=== PATIENT | male | born 1985 | race Caucasian/White ===

== ENCOUNTER 2018-09-14 14:28 | Emergency (ER) | payer OTHER ==
--- NOTE | 2018-09-14 14:43 | ED Physician Documentation ---
Multiple Trauma - HISTORIAN Historian: patient - HPI Stated Complaint: head/neck pain Chief Complaint: Multiple Trauma Additional Information: Patient presents to ED with complaints of head and neck pain after colliding with another person while running/playing baseball today. Patient was unconscious for approximately 1 minute. He sustained a 6 cm laceration to left forehead. He is not up to date on tetanus. Onset: just prior to arrival Where: other (usp yard) Location of Pain/Injury: head, neck, lower extremity (right leg), hip (right ) Injury to Right Extremity: none Injury to Left Extremity: none Severity: moderate Restraints: none - ROS CONST: no problems NEURO: dizziness EYES/ENT: problems with vision (seeing stars) MS/SKIN/LYMPH: neck pain. denies: weakness, numbness CVS/RESP: denies: chest pain, shortness of breath GI/: denies: nausea - PAST HX Past History: asthma, other (Hep C) Allergies/Adverse Reactions: Allergies Allergy/AdvReac Type Severity Reaction Status Date / Time No Known Allergies Allergy Verified 09/14/18 14:50 Home Medications: Ambulatory Orders Medication Instructions Recorded NK 09/14/18 - SOCIAL HX Smoking History: non-smoker Alcohol Use: none Drug Use: none - FAMILY HX Family History: none - VITAL SIGNS Vital Signs: Vital Signs Temp Pulse Resp BP Pulse Ox 98.6 F 58 L 19 139/91 99 09/14/18 14:36 09/14/18 14:36 09/14/18 14:36 09/14/18 14:36 09/14/18 14:36 - REVIEWED ASSESSMENTS Nursing Assessment Reviewed: Yes Vitals Reviewed: Yes Procedures Wound Location: head (left forehead) Wound Length: 6 cm Wound's Depth, Shape: linear, contused tissue Wound Explored: clean Irrigated w/ Saline (ccs): 1,000 Anesthesia: 1% Lidocaine Volume of Anesthetic: 15 Wound Debrided: moderate Wound Repaired With: sutures Suture Size/Type: 5:0 Number of Sutures: 18 Sterile Dressing Applied?: Yes Splint Applied?: No Sling Applied?: No ED Results Lab/Radiology - Orders Orders: ED Orders Category Date Time Status CHEST 1VIEW [RAD] Stat Exams 09/14/[address] BRAIN W/O CONTRAST Stat Exams 09/14/[address] C-SPINE W/O CONTRAST Stat Exams 09/14/18 Completed PELVIS AP 1 OR 2 VIEWS [RAD] Stat Exams 09/14/18 Completed RT HIP 2VIEW COMPLETE [RAD] Stat Exams 09/14/18 Completed TIBIA & FIBULA 2 VIEW [RAD] Stat Exams 09/14/18 Completed Diph,Pertuss(Acell),Tet Vac/Pf [Adacel] Med 09/14/18 16:46 Discontinued 0.5 ml IM .ONCE ONE Lidocaine 1% PF 30ml [Xylocaine 1% 30Ml Vial] Med 09/14/18 15:58 Discontinued 10 mg IJ NOW ONE Morphine Sulfate Med 09/14/18 15:04 Discontinued 5 mg IV NOW ONE Multiple Trauma Physical Exam - Physical Exam General Appearance: no acute distress, alert, 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[employer], 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 Head: trauma (6 cm laceration to left forehead) Neck: pain with neck movement Eyes: JILLIAN, EOMI ENT: no dental injury, no oral injury, airway nml Resp/CVS: chest non-tender, breath sounds nml Abdomen: soft, normal bowel sounds, non-tender Neuro/Psych: oriented x3, sensation nml, motor nml, mood/affect nml Skin: color nml, no rash Back: normal inspection Extremities: atraumatic, pelvis stable, no pedal edema, bony point-tenderness (right hip) Joint: nml ROM Discharge Clincal Impression: Laceration of forehead Qualifiers: Encounter type: initial encounter Qualified Code(s): S01.81XA - Laceration without foreign body of other part of head, initial encounter Head injury due to trauma Qualifiers: Encounter type: initial encounter Qualified Code(s): S09.90XA - Unspecified injury of head, initial encounter Referrals: Sushant Lam III, MD [Primary Care Provider] - 2 Days Additional Instructions: 1. Keep sutures dry. No swimming, hot tubs or baths. Showers ok 2. Wash sutures twice daily with warm soapy water, pat dry. 3. Ibuprofen 600mg every 6 hours as needed for pain 4. Remove sutures in 7-10 days. 5. Follow up with PCP within 7-10 days 6. Return to ER for new or worsening symptoms Condition: Stable Disposition: 01 HOME, SELF-CARE Decision to Admit: NO Date of Decison to Admit: 09/14/18 Decision Time: 17:12
[2018-09-14] MEDS ORDERED: MORPHINE SULFATE 5 MG/ML ML IV ONE (15:04)
--- NOTE | 2018-09-14 15:08 | Diagnostic Imaging Report ---
HUGO IZQUIERDO [facility] [address] [facility] [address] [address] Report Submission Date: Sep 14, 2018 3:04:28 PM CDT Patient Study Name: MELISSA THOMPSON Date: Sep 14, 2018 2:50:51 PM CDT Modality Type: CT\SR Gender: U Description: C-SPINE : 89 Institution: [facility] Physician: HUGO IZQUIERDO CT cervical spine without contrast. History: Neck pain. Technique: Transaxial computed tomographic images of the cervical spine were obtained without contrast according to standard protocol. Findings: Cervical spine straightening is present. There is no evidence of acute fracture. The odontoid process is intact. No significant degenerative change. No central canal or neural foraminal stenosis. No paravertebral soft tissue swelling. The lung apices are clear. Impression: 1. No acute osseous injury. 2. Cervical spine straightening. Electronically signed on Sep 14, 2018 3:04:28 PM CDT by: Terrenec Mitchell [facility] CAMPUSGiovana
--- NOTE | 2018-09-14 15:08 | Diagnostic Imaging Report ---
HUGO IZQUIERDO [facility] [address] [facility] [address] [place], [place]. [address] Report Submission Date: Sep 14, 2018 3:07:08 PM CDT Patient Study Name: MELISSA THOMPSON Date: Sep 14, 2018 2:48:32 PM CDT Modality Type: CT\SR Gender: U Description: HEAD W/O : 89 Institution: [facility] Physician: HUGO IZQUIERDO CT HEAD WO CONTRAST History: 33/M SOFTBALL INJURY, PT STATES PAIN IN HEAD AND NECK Technique: Standard noncontrast CT was performed with contiguous axial images acquired from skull base to vertex. Findings: There is no acute extra-axial fluid collection. Ventricles are of normal size, shape, and morphology. No mass effect or midline shift is present. No evidence of acute hemorrhage. The woodall-white matter differentiation is normal. Left frontal forehead hematoma present. The visualized portions of the orbits, and paranasal sinuses, and mastoids are normal. No fractures are identified. Impression: 1. No acute intracranial injury. 2. Left frontal forehead soft tissue swelling. Electronically signed on Sep 14, 2018 3:07:08 PM CDT by: Terrence OLIVAS
--- NOTE | 2018-09-14 15:47 | Diagnostic Imaging Report ---
HUGO IZQUIERDO [facility] [address] [facility] [address] [address] Report Submission Date: Sep 14, 2018 3:43:06 PM CDT Patient Study Name: MELISSA THOMPSON Date: Sep 14, 2018 2:40:04 PM CDT Modality Type: DX Gender: U Description: CHEST 1VIEW : 89 Institution: [facility] Physician: HUGO IZQUIERDO Chest, 1 view History: SOFTBALL INJURY - PAIN PT WAS SHIELDED Findings: The heart size is normal. The lungs are clear. There is no pleural effusion or pneumothorax identified. The osseous structures are normal. Impression: 1. No acute pulmonary disease. Electronically signed on Sep 14, 2018 3:43:06 PM CDT by: Terrence OLIVAS
--- NOTE | 2018-09-14 15:47 | Diagnostic Imaging Report ---
HUGO IZQUIERDO [facility] [address] [facility] [address] [address] Report Submission Date: Sep 14, 2018 3:42:32 PM CDT Patient Study Name: MELISSA THOMPSON Date: Sep 14, 2018 2:39:54 PM CDT Modality Type: DX Gender: U Description: PELVIS AP 1 OR 2 VIEWS : 89 Institution: [facility] Physician: UHGO IZQUIERDO Pelvis AP view. History: Pain. Findings: The osseous structures of the pelvis are intact. The proximal femur is intact. The sacroiliac joints are normal. Impression: 1. No acute osseous injury. Electronically signed on Sep 14, 2018 3:42:32 PM CDT by: Terrence OLIVAS
--- NOTE | 2018-09-14 15:48 | Diagnostic Imaging Report ---
HUGO IZQUIERDO [facility] [address] [facility] [address] [address] Report Submission Date: Sep 14, 2018 3:44:47 PM CDT Patient Study Name: MELISSA THOMPSON Date: Sep 14, 2018 2:40:18 PM CDT Modality Type: DX Gender: U Description: TIBIA FIBULA 2 VIEW : 89 Institution: [facility] Physician: HUGO IZQUIERDO Right tib-fib, two views History: Pain after softball injury. Findings: There is no evidence of acute fracture. The knee and ankle joints are normal. No soft tissue swelling. Impression: 1. No acute osseous injury. Electronically signed on Sep 14, 2018 3:44:47 PM CDT by: Terrence OLIVAS
--- NOTE | 2018-09-14 15:49 | Diagnostic Imaging Report ---
HUGO IZQUIERDO [facility] [address] [facility] [address] [address] Report Submission Date: Sep 14, 2018 3:43:54 PM CDT Patient Study Name: MELISSA THOMPSON Date: Sep 14, 2018 2:40:13 PM CDT Modality Type: DX Gender: U Description: RT HIP 2VIEW COMPLETE : 89 Institution: [facility] Physician: HUGO IZQUIERDO Right hip, two views History: Softball injury with pain. Findings: The osseous structures are intact without a fracture. The femoral head is well seated in the acetabulum. No soft tissue abnormality. Impression: 1. No acute osseous injury. Electronically signed on Sep 14, 2018 3:43:54 PM CDT by: Terrence OLIVAS
[2018-09-14] MEDS ORDERED: LIDOCAINE HCL 1% PF 300MG/30ML VIAL IJ ONE (15:58)
[2018-09-14] MEDS ORDERED: DIPH,PERTUSS(ACELL),TET VAC/PF 0.5 ML DISP.SYRIN IM ONE (16:46)
[2018-09-14 17:27] VITALS: BP 138/68
== END 2018-09-14 17:26 | disposition home or self-care (01) ==
LOC: ED 14:28
DX: S01.81XA Laceration without foreign body of other part of head, initial encounter (principal); S09.90XA Unspecified injury of head, initial encounter; W03.XXXA Other fall on same level due to collision with another person, initial encounter; Y93.64 Activity, baseball
CPT/HCPCS: 70450; 71045; 72125; 72170; 73502; 73590; 96372; 99284; J2001; S1016

== ENCOUNTER 2018-09-18 23:40 | Emergency (ER) | payer OTHER ==
[2018-09-18] MEDS ORDERED: 0.9 % SODIUM CHLORIDE 1,000 ML IV ONE (23:47)
--- NOTE | 2018-09-19 00:04 | ED Physician Documentation ---
General Adult - HISTORIAN Historian: patient, paramedics, other ([facility] [place]) - HPI Chief Complaint: Overdose Additional Information: Patient is a 33-year-old male who presents to the ER s/p "drug overdose" from the [facility] [place]. According to staff- patient was found unresponsive at 22:56; CPR was started at 22:58; 23:06 patient was given Narcan and he immediately responded. Upon EMS arrival to [facility] patient was alert and oriented x 3, he ambulated to the EMS cot. Patient brought to ER by [facility] for evaluation. Upon arrival patient is alert and oriented x 4- He c/o chest wall pain (from CPR)- when asked if patient took anything- he states NO- however, he responded with Narcan. He does not appear to be truthful with his answers. However, he is in no distress. Onset: hours (22:56) Timing: better Severity: mild Modifying Factors: "Drug Overdose" [facility] - ROS CONST: no problems EYES/ENT: none CVS/RESP: chest pain ("chest wall pain") GI/: none MS/SKIN/LYMPH: none - PAST HX Past History: asthma, other (hepatitis) Other History: none Immunizations: UTD Allergies/Adverse Reactions: Allergies Allergy/AdvReac Type Severity Reaction Status Date / Time No Known Allergies Allergy Verified 09/19/18 00:19 Home Medications: Ambulatory Orders Medication Instructions Recorded NK 09/14/18 - SOCIAL HX Smoking History: less than 1 pack/day Alcohol Use: none Drug Use: none - FAMILY HX Family History: No - VITAL SIGNS Vital Signs: Vital Signs Temp Pulse Resp BP Pulse Ox 138/68 09/14/18 17:25 - REVIEWED ASSESSMENTS Nursing Assessment Reviewed: Yes Vitals Reviewed: Yes Progress - Progress Progress: 01:00 Discussed results with officers- patient will be monitored on discharge. Patient is sleeping/appears to be resting comfortably- no acute distress. - EKG/XRAY/CT EKG: NSR (Rate of 82) ED Results Lab/Radiology - Lab Results Lab Results: WBC 8.2, Hgb 14.5, Hct 43.2, Platelets 228 Na 138, K+ 4.2, Cl 101, CO2 29, Glucose 128, Bun/Cr 19 & 0.7 Troponin 0.149 s/p chest compressions- EKG negative - patient not having any cardiac symptoms- will be monitored - Radiology Radiology Impressions: AP chest Clinical history: Cardia respiratory arrest. Examination of chest and single AP view with comparison to examination of 09/14/2018 demonstrates the lungs to be clear. Cardiovascular and mediastinal silhouettes are stable. Monitor leads superimpose the chest. Impression: 1. No significant change. 2. No active disease. - Orders Orders: ED Orders Category Date Time Status Continuous EKG monitoring Q30M Care 09/18/18 23:47 Active Continuous Pulse Oximetry Q30M Care 09/18/18 23:[address] IV Lock 1T Care 09/18/18 23:47 Active CHEST 1VIEW [RAD] Stat Exams 09/18/18 Ordered CBC/PLATELET/DIFF Routine Lab 09/18/18 23:47 Ordered CMP Routine Lab 09/18/18 23:47 Ordered DRUG SCREEN URINE MEDICAL ONLY Routine Lab 09/18/18 Ordered TROPONIN I Stat Lab 09/18/18 23:47 Ordered 0.9 % Sodium Chloride [Normal Saline] 1,000 ml Med 09/18/18 23:47 Active IV Q1H Oxygen Daily Oxygen 09/18/18 23:47 Ordered EKG WITH COMPARISON Stat Ther 09/18/18 23:47 Ordered General Adult Physical Exam - PHYSICAL EXAM GENERAL APPEARANCE: no distress EENT: eye inspection normal, ENT inspection normal, pharynx normal, JILLIAN NECK: normal inspection, supple RESPIRATORY: breath sounds normal CVS: reg rate & rhythm, heart sounds normal, equal pulses ABDOMEN: soft, normal bowel sounds BACK: normal inspection SKIN: warm/dry, normal color EXTREMITIES: non-tender, normal range of motion NEURO: oriented X3, CN's nml as tested, motor nml, sensation nml, mood/affect nml, cognition normal Discharge Clincal Impression: Accidental drug overdose Referrals: Sushant Lam III, MD [Primary Care Provider] - 2 Days Additional Instructions: [facility]- patient is stable No further orders [facility] will follow [facility] protocol for monitoring Condition: Good Disposition: 01 HOME, SELF-CARE Decision to Admit: NO Decision Time: 01:18
--- NOTE | 2018-09-19 01:07 | Diagnostic Imaging Report ---
JOHN POST ED [facility] [address] [facility] [address] [place], [place]. [address] Report Submission Date: Sep 19, 2018 12:28:36 AM CDT Patient Study Name: MELISSA THOMPSON Date: Sep 19, 2018 12:01:39 AM CDT Modality Type: DX Gender: U Description: CHEST 1VIEW : 89 Institution: [facility] Physician: JOHN POST ED AP chest Clinical history: Cardia respiratory arrest. Examination of chest and single AP view with comparison to examination of 09/14/2018 demonstrates the lungs to be clear. Cardiovascular and mediastinal silhouettes are stable. Monitor leads superimpose the chest. Impression: 1. No significant change. 2. No active disease. Electronically signed on Sep 19, 2018 12:28:36 AM CDT by: Lawrence OLIVAS
[2018-09-19 01:25] VITALS: BP 120/69
[2018-09-19 06:29] LABS: BASOPHILS % 0.7 % (0.0-1.5); NEUTROPHILS # 5.4 # k/uL (1.4-7.7)
[2018-09-19 06:34] LABS: eGFR (Non-African) > 60
== END 2018-09-19 01:11 | disposition home or self-care (01) ==
LOC: ED 23:40
DX: T50.901A Poisoning by unspecified drugs, medicaments and biological substances, accidental (unintentional), initial encounter (principal)
CPT/HCPCS: 71045; 80053; 84484; 85025; 96360; 99283; 99284